=== PATIENT | male | born 2005 | race African-American/Black ===

== ENCOUNTER 2024-02-27 17:12 | Emergency (ER) | payer OTHER, SELFPAY ==
[2024-02-27] MEDS ORDERED: cefTRIAXone (ROCEPHIN) 500 MG VIAL ONE (17:57)
[2024-02-27] MEDS ORDERED: Lidocaine 1% MPF 2 ML VIAL ONE (17:57)
[2024-02-27 18:17] LABS: Bilirubin Negative (Negative); CAUTI Indications for Culture Dysuria,urgency,freq; Glucose, Urine (Dipstick) Normal (Negative); Ketone, Urine Negative (Negative); Leukocyte 500 Leu/uL (Negative); Nitrite Negative (Negative); Protein, Urine (Dipstick) 20 mg/dL (Neg-Trace); Specific Gravity, Urine 1.028 (1.002-1.036); WBC/HPF Greater than 50 HPF (0-3); pH, Urine 7.5 (5.0-9.0)
[2024-02-27 18:20] LABS: Clarity Slightly Cloudy (Clear)
[2024-02-27 18:27] LABS: Blood, Urine Trace (Negative)
[2024-02-27 18:28] LABS: Bacteria/HPF Rare-Few HPF (None Seen); Yeast-Budding Rare HPF (None Seen)
[2024-02-27 18:29] LABS: Urine Culture Reflex Yes Yes
[2024-02-28 15:15] LABS: Chlam.trachomatis by PCR,Urine Not Detected (NotDetected); GC N.gonorrhoeae PCR,UrineVOID DETECTED (NotDetected)
== END 2024-02-27 18:44 | disposition home or self-care (01) ==
LOC: ERS 17:12
DX: N34.2 Other urethritis (principal); R31.29 Other microscopic hematuria; B37.49 Other urogenital candidiasis
CPT/HCPCS: 81001; 87086; 87491; 87591; 96372; 99283; J0696

== ENCOUNTER 2024-08-26 16:34 | Emergency (ER) | payer SELFPAY ==
[2024-08-26] MEDS ORDERED: Ibuprofen 800 MG TAB ONE (17:19)
== END 2024-08-26 18:24 | disposition home or self-care (01) ==
LOC: ERS 16:34
DX: H92.02 Otalgia, left ear (principal)
CPT/HCPCS: 99282

== ENCOUNTER 2025-08-16 08:47 | Emergency (ER) | payer SELFPAY ==
[2025-08-16] MEDS ORDERED: Dexamethasone 10 MG/ML VIAL ONE (10:21)
== END 2025-08-16 10:28 | disposition home or self-care (01) ==
LOC: ERS 08:47
DX: J02.9 Acute pharyngitis, unspecified (principal); F17.290 Nicotine dependence, other tobacco product, uncomplicated
CPT/HCPCS: 99282; J1100